=== PATIENT | female | born 1945 | race Caucasian/White ===

== ENCOUNTER 2022-02-01 04:01 | Day surgery (SDC) | payer OTHER ==
[2022-01-31 13:06] VITALS: BMI 33.2
[2022-02-01] MEDS ORDERED: LIDOCAINE HCL/PF (2%) 40 MG/2 ML VIAL ONE ×2 (09:09→09:12)
[2022-02-01] MEDS ORDERED: PROPOFOL 20 ML ONE ×2 (09:09→09:17)
[2022-02-01] MEDS ORDERED: DEXAMETHASONE SOD PHOSPHATE 4 MG/1 ML VIAL ONE ×2 (13:18→14:41)
[2022-02-01] MEDS ORDERED: ONDANSETRON 4 MG/2 ML VIAL ONE (13:18)
[2022-02-01] MEDS ORDERED: ACETAMINOPHEN 325 MG TABLET (FP) PO PRN (13:29)
[2022-02-01] MEDS ORDERED: PROMETHAZINE HCL 25 MG/1 ML VIAL IVPUSH PRN (13:29)
[2022-02-01] MEDS ORDERED: ONDANSETRON 4 MG/2 ML VIAL IVPUSH PRN (13:29)
[2022-02-01] MEDS ORDERED: oxyCODONE HCL 5 MG TABLET PO PRN (13:29)
[2022-02-01] MEDS ORDERED: LACTATED RINGERS SOLUTION 1,000 ML IV SCH (13:30)
[2022-02-01] MEDS ORDERED: IBUPROFEN 400 MG TABLET (FP) PO PRN (15:25)
[2022-02-01 16:39] VITALS: RESP 18
[2022-02-01 17:17] VITALS: BP 145/74; PULSE 61; TEMP 97.1
== END 2022-02-01 17:45 | disposition home or self-care (01) ==
LOC: JASU-SURG 04:01
PROVIDERS: ATTEND Obstetrics & Gynecology
PROC: 0UB98ZZ Excision of Uterus, Via Natural or Artificial Opening Endoscopic (ICD-10-PCS; principal; 2022-02-01 13:00)
DX: N95.0 Postmenopausal bleeding (principal); D25.0 Submucous leiomyoma of uterus; E11.9 Type 2 diabetes mellitus without complications; I10 Essential (primary) hypertension; Z79.84 Long term (current) use of oral hypoglycemic drugs
CPT/HCPCS: 82962; 88305-TC; 88342-TC; 94760